=== PATIENT | female | born 1985 | race Caucasian/White ===

== ENCOUNTER 2017-05-26 17:40 | Emergency (ER) | payer MEDICAID, OTHER ==
[~2017-05-26] VITALS: Ht 157.5 cm; Wt 65.0 kg
[2017-05-27] MEDS ORDERED: KETOROLAC 60MG/2ML VIAL IM ONE (01:30)
[2017-05-27 05:04] VITALS: BP 101/54
== END 2017-05-27 07:03 | disposition home or self-care (01) ==
LOC: ER 18:09
DX: S62.660A Nondisplaced fracture of distal phalanx of right index finger, initial encounter for closed fracture (principal); M79.661 Pain in right lower leg; M25.562 Pain in left knee; V49.9XXA Car occupant (driver) (passenger) injured in unspecified traffic accident, initial encounter; Y93.89 Activity, other specified; Y92.89 Other specified places as the place of occurrence of the external cause; Y99.8 Other external cause status
CPT/HCPCS: 29130; 73130; 73562; 73590; 96372; 99284; J1885; Z7610

== ENCOUNTER 2023-01-25 08:07 | Inpatient (IN) | payer MEDICAID, OTHER ==
[~2023-01-25] VITALS: Ht 157.5 cm; Wt 73.9 kg
[2023-01-25] MEDS ORDERED: CARBOPROST TROMETHAMINE 250 MCG/ML AMPUL IM PRN (08:30)
[2023-01-25] MEDS ORDERED: LIDOCAINE HCL 1% 20ML VIAL (Pyxis) INJ INFIL SCH (08:30)
[2023-01-25] MEDS ORDERED: METHYLERGONOVINE MALEATE 0.2 MG/ML IM PRN (08:30)
[2023-01-25] MEDS ORDERED: LACTATED RINGERS 1,000 ML IV SCH (08:30)
[2023-01-25] MEDS ORDERED: MISOPROSTOL 100MCG TABLET VG SCH (08:30)
[2023-01-25] MEDS: OXYTOCIN 30 UNITS/500ML NS PMX 500 ML IV SCH ×2 (09:48→10:38)
[2023-01-25] MEDS ORDERED: GLYCERIN/WITCH HAZEL LEAF MEDICATED PAD TOP PRN (10:00)
[2023-01-25] MEDS ORDERED: DIPHENHYDRAMINE 25MG CAPSULE PO PRN (10:00)
[2023-01-25] MEDS ORDERED: LANOLIN OINT 7GM TUBE TOP PRN (10:00)
[2023-01-25] MEDS ORDERED: OXYTOCIN 30 UNITS/500ML NS PMX 500 ML IV SCH (10:00)
[2023-01-25] MEDS ORDERED: BISACODYL 10MG SUPP PR PRN (10:00)
[2023-01-25] MEDS ORDERED: IBUPROFEN 400MG TABLET PO PRN (10:00)
[2023-01-25] MEDS ORDERED: ACETAMINOPHEN WITH CODEINE 300/30MG TABLET PO PRN (10:00)
[2023-01-25] MEDS ORDERED: RHO(D) IMMUNE GLOBULIN 300 MCG/SYR IM PRN (10:00)
[2023-01-25] MEDS ORDERED: HEMORRHOIDAL SUPP PR PRN (10:00)
[2023-01-25] MEDS ORDERED: BENZOCAINE/LANOLIN/ALOE VERA SPRAY TOP PRN (10:00)
[2023-01-25] MEDS ORDERED: NALOXONE HCL 0.4MG/ML VIAL IV PRN (10:15)
[2023-01-25 11:22] LABS: BASOPHILS % 0.3 % (0.0-2.0); EOSINOPHILS % 1.9 % (0.0-5.0); HEMATOCRIT. 36.2 % (36.0-48.0); HEMOGLOBIN. 12.2 g/dL (12.0-16.0); LYMPHOCYTES % 29.3 % (20.0-50.0); MEAN CORPUSCULAR HEMOGLOBIN 29.2 pg (28.0-32.0); MEAN CORPUSCULAR VOLUME 86.4 fL (81.0-99.0); MEAN PLATELET VOLUME 7.7 fl (7.4-10.4); MONOCYTES % 5.1 % (2.0-8.0); NEUTROPHILS % 63.4 % (40.0-76.0); PLATELET 352 x1000/uL (130-400); RED BLOOD CELL COUNT 4.19 mill/uL (4.2-5.4); RED CELL DISTRIBUTION WIDTH 13.5 % (11.6-14.6)
[2023-01-25 12:00] VITALS: BP 133/77
[2023-01-25] MEDS: SIMETHICONE 80MG TABLET CHEW PO SCH ×3 (12:09→20:59)
[2023-01-25] MEDS: MAGNESIUM/ALUMINUM HYDROXIDE/SIMETHICONE 30ML UDC PO SCH ×3 (12:09→20:59)
[2023-01-25 12:29] LABS: HEPATITIS B SURFACE ANTIGEN NEGATIVE
[2023-01-25 12:30] VITALS: BP 120/70
[2023-01-25 12:58] VITALS: BP 117/71
[2023-01-25 17:06] LABS: CLARITY URINE CLEAR (CLEAR); COLOR URINE YELLOW (YELLOW); KETONES URINE NEGATIVE (NEGATIVE); LEUKOCYTE ESTERASE URINE 1+ (NEGATIVE); NITRITE URINE NEGATIVE (NEGATIVE); OCCULT BLOOD URINE 3+ (NEGATIVE); PROTEIN URINE NEGATIVE (NEGATIVE); SPECIFIC GRAVITY URINE 1.008 (1.005-1.030); UROBILINOGEN URINE 0.2 E.U./dL (0.2-1.0)
[2023-01-25 17:37] LABS: *AMPHETAMINES SCREEN URINE NEGATIVE (NEGATIVE); *BARBITURATES SCREEN URINE NEGATIVE (NEGATIVE); *BENZODIAZEPINES SCREEN URINE NEGATIVE (NEGATIVE); *COCAINE SCREEN URINE NEGATIVE (NEGATIVE); CANNABINOID URINE SCREEN NEGATIVE (NEGATIVE); METHADONE URINE SCREEN NEGATIVE (NEGATIVE); OPIATES URINE SCREEN NEGATIVE (NEGATIVE); PHENCYCLIDINE URINE SCREEN NEGATIVE (NEGATIVE)
[2023-01-25 19:45] VITALS: BP 108/59
[2023-01-25] MEDS: DOCUSATE SODIUM 100MG CAPSULE PO SCH (20:59)
[2023-01-26] MEDS: IBUPROFEN 800MG TABLET PO PRN ×2 (00:38→18:05)
[2023-01-26 03:05] VITALS: BP 112/66
[2023-01-26] MEDS: SIMETHICONE 80MG TABLET CHEW PO SCH ×2 (08:14→13:00)
[2023-01-26] MEDS: MAGNESIUM/ALUMINUM HYDROXIDE/SIMETHICONE 30ML UDC PO SCH ×2 (08:14→18:04)
[2023-01-26] MEDS: FERROUS SULFATE 325MG TABLET PO SCH ×2 (08:15→18:05)
[2023-01-26] MEDS ORDERED: PRENATAL VIT/FE FUMARATE/FA TABLET PO SCH (09:00)
[2023-01-26 10:00] VITALS: BP 120/70
[2023-01-26 10:23] LABS: BASOPHILS % 0.4 % (0.0-2.0); EOSINOPHILS % 1.8 % (0.0-5.0); HEMOGLOBIN. 9.9 g/dL (12.0-16.0); LYMPHOCYTES % 25.9 % (20.0-50.0); MEAN CORPUSCULAR HEMOGLOBIN 29.7 pg (28.0-32.0); MEAN PLATELET VOLUME 6.7 fl (7.4-10.4); NEUTROPHILS % 64.9 % (40.0-76.0); PLATELET 262 x1000/uL (130-400); RED BLOOD CELL COUNT 3.33 mill/uL (4.2-5.4); RED CELL DISTRIBUTION WIDTH 13.4 % (11.6-14.6)
[2023-01-26 17:00] VITALS: BP 111/64
[2023-01-26 19:05] VITALS: BP 121/70
[2023-01-26] MEDS: DOCUSATE SODIUM 100MG CAPSULE PO SCH (21:45)
[2023-01-27 03:00] VITALS: BP 120/69
[2023-01-27 08:00] VITALS: BP 104/55
== END 2023-01-27 12:45 | disposition home or self-care (01) | DRG 560 ==
LOC: 8 EST LDRP 08:07 → OBSVTOIN 08:07 → 8EST 12:08
PROVIDERS: ADMIT Obstetrics & Gynecology; ATTEND Obstetrics & Gynecology
PROC: 10E0XZZ Delivery of Products of Conception, External Approach (ICD-10-PCS; principal; 2023-01-25)
PROC: 0KQM0ZZ Repair Perineum Muscle, Open Approach (ICD-10-PCS; 2023-01-25)
DX: O34.211 Maternal care for low transverse scar from previous cesarean delivery (principal); Z37.0 Single live birth; D62 Acute posthemorrhagic anemia; O70.1 Second degree perineal laceration during delivery; Z20.822 Contact with and (suspected) exposure to COVID-19; Z3A.39 39 weeks gestation of pregnancy; O77.0 Labor and delivery complicated by meconium in amniotic fluid; O99.02 Anemia complicating childbirth
CPT/HCPCS: 36415; 80305; 81003; 85025; 86592; 86703; 86762; 86850; 86900; 87340; 87426; 99281; J3490; J7120; J2590